=== PATIENT | female | born 1980 | race Caucasian/White ===

== ENCOUNTER 2016-10-27 13:39 | Emergency (ER) | payer MEDICAID, OTHER ==
[2016-10-27 14:13] VITALS: BP 104/62
--- NOTE | 2016-10-27 15:20 | UC ---
Respiratory Complaint HPI - HPI Summary HPI Summary: Patient complaining of sore throat x 2 days. States she has associated chest congestion, sinus pressure and pain, cough with sputum production, ear pain, eye pain, CAMPA and generalized weakness. she states she only feels better every year after she receives amoxicillin. she is around sick contacts. - History of Current Complaint Chief Complaint: UCGeneralIllness Stated Complaint: SORE THROAT Time Seen by Provider: 10/27/16 14:42 Hx Obtained From: Patient Hx Last Menstrual Period: 09/23/16 Onset/Duration: Sudden Onset Timing: Constant Severity Initially: Moderate Severity Currently: Moderate Pain Intensity: 2 Pain Scale Used: 0-10 Numeric Character: Cough: Productive Aggravating Factors: Deep Breaths Associated Signs And Symptoms: Positive: Dyspnea, Pleuritic Chest Pain, Dizziness, URI, Nasal Congestion, Hoarseness, Sinus Discomfort - Risk Factors Cardiac Risk Factors: Smoking - Allergies/Home Medications Allergies/Adverse Reactions: Allergies Allergy/AdvReac Type Severity Reaction Status Date / Time No Known Allergies Allergy Verified 10/27/16 14:12 PMH/Surg Hx/FS Hx/Imm Hx Previously Healthy: Yes Respiratory History Of: Reports: Asthma - Surgical History Surgical History: Yes Surgery Procedure, Year, and Place: hysterectomy-11/04/16 - Family History Known Family History: Positive: Unknown - Social History Occupation: Unemployed Lives: Alone Alcohol Use: None Substance Use Type: None Smoking Status (MU): Light Every Day Tobacco Smoker Amount Used/How Often: < 10 per day Household Exposure Type: Cigarettes Review of Systems Constitutional: Fatigue Skin: Negative Eyes: Negative ENT: Sore Throat, Ear Ache, Nasal Discharge Respiratory: Shortness Of Breath, Cough Cardiovascular: Chest Pain - pressure with cough Genitourinary: Negative Motor: Negative Musculoskeletal: Negative Neurological: Negative Psychological: Negative All Other Systems Reviewed And Are Negative: Yes Physical Exam Triage Information Reviewed: Yes Appearance: Well-Appearing, No Pain Distress, Well-Nourished Vital Signs: Initial Vital Signs Temp 98.7 F 10/27/16 14:07 Pulse 66 10/27/16 14:07 Resp 16 10/27/16 14:07 BP 104/62 10/27/16 14:07 Pulse Ox 100 10/27/16 14:07 Vital Signs Reviewed: Yes Eye Exam: Normal Eyes: Positive: Conjunctiva Clear ENT Exam: Normal ENT: Positive: Pharynx normal, Nasal drainage Dental Exam: Normal Neck exam: Normal Neck: Positive: Supple, Nontender, No Lymphadenopathy Respiratory Exam: Normal Respiratory: Positive: Chest non-tender, Lungs clear Cardiovascular Exam: Normal Neurological Exam: Normal Neurological: Positive: Alert Psychological Exam: Normal Psychological: Positive: Normal Response To Family Skin Exam: Normal UC Diagnostic Evaluation - Laboratory O2 Sat by Pulse Oximetry: 100 Respiratory Course/Dx - Course Course Of Treatment: POCT strep performed. Negative. Patient sent home with amoxicillin and encouraged to follow up with PCP if symptoms continue. - Differential Dx/Diagnosis Differential Diagnosis/HQI/PQRI: Asthma, Bronchitis, Sinusitis Provider Diagnoses: URI - Physician Notification/Consults Instructed by Provider To: Have Pt Call For Appt. Discharge - Discharge Plan Condition: Stable Disposition: HOME Prescriptions: Amoxicillin CAP* 500 mg PO Q12H #10 cap MDD 2 Patient Education Materials: Upper Respiratory Infection (ED) Forms: *Gen. Provider Communication Referrals: LYUDMILA Bates [Primary Care Provider] - Additional Instructions: Cepacol lozenges OTC for throat discomfort. May take tylenol or ibuprofen for discomfort. Take medication as prescribed to you.
== END 2016-10-27 15:27 | disposition home or self-care (01) ==
LOC: UCCORT 13:39
DX: J06.9 Acute upper respiratory infection, unspecified (principal); F17.210 Nicotine dependence, cigarettes, uncomplicated
CPT/HCPCS: 87651; 99212; G0463